=== PATIENT | female | born 1970 | race Caucasian/White ===

== ENCOUNTER → 2018-10-26 | Outpatient (CLI) | payer OTHER ==
--- NOTE | 2018-11-05 08:42 | Diagnostic Imaging Report ---
#[id number] - MGSCRBIL #BILATERAL DIGITAL SCREENING MAMMOGRAM WITH CAD: 10/26/2018 CLINICAL: Routine screening. Comparison is made to exams dated: 06/08/2017 mammogram and 05/20/2013 mammogram - [facility]. Current study contains 4 films. There are scattered fibroglandular elements in both breasts. Current study was also evaluated with a Computer Aided Detection (CAD) system. Benign appearing calcifications are noted bilaterally. There is a benign appearing mass in the right breast which is stable. No significant masses, calcifications, or other findings are seen in either breast. IMPRESSION: BENIGN There is no mammographic evidence of malignancy. A 1 year screening mammogram is recommended. The patient will be notified by letter of the results. JONAH WILSON M.D. ct/penrad:11/02/2018 14:53:56 [employer] Machine Operator: Chelsie RUIZ(Chauncey)(Tr), [facility] letter sent: Normal Exam Mammogram BI-RADS: 2 Benign
== END ==
LOC: MAMMO 10:52
PROVIDERS: ATTEND Family Medicine
DX: Z12.31 Encounter for screening mammogram for malignant neoplasm of breast (principal)
CPT/HCPCS: 77067

== ENCOUNTER 2019-07-04 08:34 | Inpatient (IN) | payer OTHER ==
[~2019-07-04] VITALS: Ht 154.9 cm; Wt 65.5 kg
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
[2019-07-04] MEDS ORDERED: SODIUM CHLORIDE 0.9% 1000ML 1,000 ML IV STA (08:58)
[2019-07-04] MEDS ORDERED: GABAPENTIN300 MG PO (09:22)
[2019-07-04] MEDS ORDERED: NP THYROID90 MG (09:22)
[2019-07-04] MEDS ORDERED: ACETAMINOPHEN-1 EAC4 PO (09:22)
[2019-07-04] MEDS ORDERED: ULTRAM 50MG50 MG (09:22)
[2019-07-04] MEDS ORDERED: ARMOUR THYROID60 MG (09:22)
[2019-07-04 09:30] LABS: AMPHETAMINES SCREEN,URINE NEGATIVE (NEGATIVE); BENZODIAZEPINES SCREEN,URINE NEGATIVE (NEGATIVE); PHENCYCLIDINE SCREEN,URINE NEGATIVE (NEGATIVE)
[2019-07-04 09:31] LABS: CLARITY,URINE CLEAR (CLEAR); COLOR,URINE YELLOW (YELLOW); KETONES,URINE 1+ (NEGATIVE); LEUKOCYTE ESTERASE ,URINE NEGATIVE (NEGATIVE); NITRITE,URINE NEGATIVE (NEGATIVE); PROTEIN,URINE DIPSTICK TRACE (NEGATIVE)
[2019-07-04 09:32] LABS: BILIRUBIN,URINE SMALL (NEGATIVE); URINE UROBILINOGEN 0.2 mg/dL (0.2 - 1)
[2019-07-04 09:34] LABS: BACTERIA,URINE FEW /HPF; EPITHELIAL CELLS,URINE MODERATE /LPF; WBC,URINE (MAN) 0-5 /HPF (0-5)
[2019-07-04 10:01] LABS: BASOPHILS % 0.2 % (0.0-1.0); EOSINOPHILS % 0.2 % (0.0-6.0); HEMATOCRIT 46.3 % (34.2-44.1); HEMOGLOBIN 15.3 g/dL (12.0-16.0); LYMPHOCYTES # (AUTO) 1.2 (1.0-3.2); LYMPHOCYTES % 10.2 % (18.0-39.1); MEAN CORPUSCULAR HEMOGLOBIN 31.1 pg (28-32); MEAN CORPUSCULAR VOLUME 94.1 fL (81-99); MONOCYTES # (AUTO) 1.1 (0.2-0.8); MONOCYTES % 9.3 % (4.4-11.3); NEUTROPHILS # (AUTO) 9.7 (2.1-6.9); NEUTROPHILS % 79.8 % (38.7-80.0); PLATELET COUNT 241 x10e3/uL (140-360); RED BLOOD COUNT 4.92 x10e6/uL (3.6-5.1); RED CELL DISTRIBUTION WIDTH 12.5 % (11.7-14.4)
[2019-07-04 10:20] LABS: ALANINE AMINOTRANSFERASE 18 IU/L (0-55); ALBUMIN 3.8 g/dL (3.5-5.0); ALKALINE PHOSPHATASE 78 IU/L (40-150); ANION GAP 12.8 mmol/L (8-16); BLOOD UREA NITROGEN 7 mg/dL (7-26); BUN/CREATININE RATIO 9 (6-25); CALCIUM 9.6 mg/dL (8.4-10.2); CARBON DIOXIDE 28 mmol/L (22-29); CHLORIDE 97 mmol/L (98-107); CREATININE, SERUM 0.82 mg/dL (0.57-1.11); EST GLOMERULAR FILTRATION RATE > 60 ML/MIN (60-); GLUCOSE 102 mg/dL (74-118); LIPASE 10 U/L (8-78); POTASSIUM 3.8 mmol/L (3.5-5.1); SODIUM 134 mmol/L (136-145)
[2019-07-04] MEDS ORDERED: KETOROLAC TROMETHAMINE 30 MG/ML VIAL IV STA (10:30)
--- NOTE | 2019-07-04 10:32 | Diagnostic Imaging Report ---
EXAM: CT Abdomen and Pelvis WITHOUT intravenous contrast INDICATION: Abdominal pain COMPARISON: None. TECHNIQUE: Abdomen and pelvis were scanned utilizing a multidetector helical scanner from the lung base to the pubic symphysis without administration of IV contrast. Coronal and sagittal reformations were obtained. IV CONTRAST: None ORAL CONTRAST: Water COMPLICATIONS: None RADIATION DOSE: Total DLP: 609 mGy*cm Dose modulation, iterative reconstruction, and/or weight based adjustment of the mA/kV was utilized to reduce the radiation dose to as low as reasonably achievable. FINDINGS: LOWER THORAX: Normal. HEPATOBILIARY: No focal hepatic lesions. No biliary ductal dilatation. The gallbladder appears unremarkable. SPLEEN: No splenomegaly. PANCREAS: No focal masses or ductal dilatation. ADRENALS: No adrenal nodules. KIDNEYS/URETERS: No hydronephrosis, stones, or solid mass lesions. PELVIC ORGANS/BLADDER: Unremarkable. PERITONEUM / RETROPERITONEUM: No free air or fluid. LYMPH NODES: No lymphadenopathy. VESSELS: Moderate atherosclerotic calcifications of the nonaneurysmal abdominal aorta and major branches. GI TRACT: Sigmoid diverticulosis with a segment of focal proximal sigmoid colon wall thickening associated with several inflamed diverticuli with pericolonic fat stranding and a small subcentimeter focus of extraluminal air. No focal fluid collection. BONES AND SOFT TISSUES: No acute osseous injury. IMPRESSION: Acute perforated sigmoid diverticulitis without focal diverticular abscess. Signed by: Sj Cordova MD on 07/04/2019 10:29 AM
[2019-07-04] MEDS ORDERED: MORPHINE SULFATE INJ 4 MG/ML INJ 1ML IV PRN ×2 (10:45→14:30)
[2019-07-04] MEDS: ONDANSETRON HCL INJ 2MG/ML 2ML 2 MG/ML VIAL IV PRN ×3 (10:50→19:05)
[2019-07-04] MEDS ORDERED: CIPROFLOXACIN 400 MG/D5W 200ML 200 ML IV SCH (11:00)
[2019-07-04 11:44] VITALS: BP 106/56
[2019-07-04] MEDS ORDERED: ARMOUR THYROID90 MG PO (11:44)
[2019-07-04 11:47] VITALS: BP 106/56
[2019-07-04] MEDS ORDERED: PIPER-TAZ 3.375 GM 50 ML IV SCH (12:00)
[2019-07-04] MEDS ORDERED: METRONIDAZOLE 500MG/NS 100ML 100 ML IV SCH (12:00)
--- NOTE | 2019-07-04 12:00 | NUR ---
Received patient from ER to room 297, patient is in stable condition. Admission history and initial physical assessment completed. Patient oriented to room and policies. Call light within reach. Bed in the lowest position.
[2019-07-04 12:08] VITALS: BP 106/56
[2019-07-04] MEDS: PIPER-TAZ 3.375 GM 50 ML IV SCH ×2 (13:06→20:00)
[2019-07-04] MEDS: MORPHINE SULFATE INJ 4 MG/ML INJ 1ML IV PRN ×2 (14:55→19:05)
[2019-07-04 15:01] VITALS: BP 92/55
[2019-07-04] MEDS: KETOROLAC TROMETHAMINE 30 MG/ML VIAL IV PRN ×2 (17:30→22:15)
[2019-07-04] MEDS: SODIUM CHLORIDE 0.9% 1000ML 1,000 ML IV SCH (19:05)
--- NOTE | 2019-07-04 19:15 | NUR ---
patient received awake, alert, lying quietly in bed. vss. patient medicated for pain by day shift nurse prior to rounds. ivf continue to infuse without difficulty. pm assessment complete. patient instructed to call for assistance when needed.
--- NOTE | 2019-07-04 19:19 | NUR ---
Bedside shift report given to oncoming nurse. Patient is resting in bed. No acute distress noted. Call light within reach. Bed in the lowest position.
[2019-07-04 20:00] VITALS: BP 101/57
[2019-07-04] MEDS: METRONIDAZOLE 500MG/NS 100ML 100 ML IV SCH (22:00)
[2019-07-04 22:29] VITALS: BP 101/57
--- NOTE | 2019-07-04 22:34 | History and Physical ---
CHIEF COMPLAINT: The patient is a 49-year-old female, who came with abdominal pain. HISTORY OF PRESENTING ILLNESS: Ms. Lissette Mcmanus with a history of diverticulitis in the past, seen Dr. Lara, was given a high-fiber diet and the patient started keto diet and started with abdominal pain, which was acute in onset. The patient came in and was found to have diverticulitis with perforation. The patient is on the floor. Vital signs stable. The patient is asking for pain medications at this time. PAST MEDICAL HISTORY: History of hypothyroidism and history of diverticulitis as mentioned above. The patient also has a history of low back pain for which she takes Tylenol with Codeine and gabapentin 300 mg daily p.r.n. The patient also takes [place] Thyroid 90 mg daily. PAST SURGICAL HISTORY: History of hysterectomy. SOCIAL HISTORY: No EtOH. No abuse. FAMILY HISTORY: Mother with TIAs and family history of stroke in the family too. REVIEW OF SYSTEMS: Negative for chest pain. No shortness of breath. No nausea. No vomiting. No diarrhea. Positive for some constipation. No rectal bleeding. No hematochezia. No hematemesis. Positive for abdominal pain. No diplopia. No blurry vision. No paresthesias. No hyperesthesias and no focal deficits noted. PHYSICAL EXAMINATION: GENERAL: The patient is alert and oriented x3, apparently in pain. Pain is 8/10 in intensity. VITAL SIGNS: Temperature is 100.5, pulse of 98, respirations 20, pulse oximetry of 98%. HEENT: Normocephalic, atraumatic. Pupils are reactive to light and accommodation. CVS: S1 and S2 normal. Regular rate and rhythm. LUNGS: Clear to auscultation bilaterally. ABDOMEN: Tender in the left lower quadrant. EXTREMITIES: No clubbing, no cyanosis, no edema. No rebound present at this time. IMAGING STUDIES: Imaging done in the ED shows acute perforated sigmoid diverticulitis without focal diverticular abscess. Moderate atherosclerotic calcification of aneurysm abdominal aorta. Kidneys show no hydroureters. Adrenals no nodules. Pancreas are normal and no splenomegaly. ASSESSMENT: Ms. Lissette Mcmanus with: 1. Diverticulitis with diverticular perforation. 2. Systemic inflammatory response syndrome. 3. History of low back pain. 4. History of hypothyroidism. PLAN: Keep the patient n.p.o. The patient is getting normal saline at 125 mL an hour. She is currently on Zosyn and also Flagyl, which will provide adequate coverage. ID consult has been done. The patient also has Dr. Luis M Pearl on consult. We will also consult her GI, Dr. Garner, who covers for Dr. Lara. Further recommendation per clinical course. We will continue to monitor the patient. Further recommendation by Dr. Luis M Pearl and monitor her very carefully. Telemetry to be applied and also SCDs for DVT prophylaxis. MD KYLAH Michelle/MODL /[id number]
--- NOTE | 2019-07-04 23:09 | Consultation ---
DATE OF CONSULTATION: REASON FOR CONSULTATION: Diverticulitis with an abscess. HISTORY OF PRESENT ILLNESS: This is a patient who is a 49-year-old female, who has a history of diverticular disease, comes in with one day of abdominal pain, pre-umbilical, got progressively worse. She still has less constipation, took her laxative without improvement, came to the emergency room. The patient is having abdominal pain. She is being admitted on antibiotic. PAST MEDICAL HISTORY: Diverticular disease. PAST SURGICAL HISTORY: Denies. ALLERGIES: NKA. SOCIAL HISTORY: There is no smoking, drug abuse, or alcohol abuse. FAMILY HISTORY: Otherwise unremarkable. She used to smoke long time ago. Her CAT scan showed acute diverticulitis with rupture, but there was no abscess. White count 12.1 sodium 134, potassium 3.8. MEDICATION LIST: She is currently on Zosyn and Flagyl. REVIEW OF SYSTEMS: HEENT: Negative. PULMONARY: Negative. CARDIAC: Negative. : Negative. GI: As above. PHYSICAL EXAMINATION: GENERAL: She is currently alert, oriented, does not seem to be in acute distress. VITAL SIGNS: Stable, currently afebrile. HEENT: She is not icteric. NECK: Supple. CHEST: Clear. HEART: S1 and S2. ABDOMEN: Soft. Diffuse discomfort. IMPRESSION: Diverticulitis, diverticular disease. Agree with Zosyn. Can continue Flagyl. Recheck CBC. Recheck Chem panel. Surgery is consulted. Would need colonoscopy eventually. May need surgery eventually. We will follow. MD HELEN Aden/KRISTINE /[id number]
[2019-07-05] VITALS (8 sets, daily range): BP systolic 87–134; BP diastolic 51–75
[2019-07-05] MEDS: ONDANSETRON HCL INJ 2MG/ML 2ML 2 MG/ML VIAL IV PRN ×4 (00:25→15:38)
[2019-07-05] MEDS: MORPHINE SULFATE INJ 4 MG/ML INJ 1ML IV PRN ×5 (00:25→19:48)
[2019-07-05] MEDS: PIPER-TAZ 3.375 GM 50 ML IV SCH ×4 (01:06→20:30)
--- NOTE | 2019-07-05 02:54 | Consultation ---
DATE OF CONSULTATION: 07/04/2019 HISTORY OF PRESENT ILLNESS: This is a 49-year-old, who presented to the hospital because of left lower abdominal pain and the patient was found to have acute perforated diverticulitis, which seems to be walled off. She apparently had same similar episodes in March, but she was not hospitalized at that time. She had a colonoscopy recently in January of last year by my associate, Dr. Lara, which only showed diverticulosis. PAST MEDICAL HISTORY: Significant for history of now recurrent diverticulitis. ALLERGIES: NONE. SOCIAL HISTORY: Denies any alcohol use. FAMILY HISTORY: Noncontributory. REVIEW OF SYSTEMS: Denies any chest pain or shortness of breath. Denies any dysphagia or odynophagia. Denies any dysuria, hematuria, or any kind of syncopal episode. PHYSICAL EXAMINATION: GENERAL: Awake, alert, appears to be stable, in no acute distress at this point. VITAL SIGNS: She is afebrile currently with stable vital signs. HEAD, EYES, EARS, NOSE, AND THROAT: Normocephalic, atraumatic. Sclerae are anicteric. NECK: Supple. HEART: Sounds regular. LUNGS: Clear. ABDOMEN: Soft. There is mild tenderness in the left lower quadrant area. There is no rebound or mass. EXTREMITIES: There is no clubbing. LABORATORY VALUES: WBC of 12.1, and chemistry was okay except for sodium 134. CT scan shows perforated diverticulitis without any abscess. IMPRESSION: Recurrent diverticulitis at this time with perforation. The patient did have a colonoscopy in January 2019. RECOMMENDATIONS: Keep n.p.o., IV fluid, and hydration. The patient will benefit from colon resection after these episodes resolve. Tristen Garner MD DHD/MODL /[id number] cc: MD Dr. Dae Michelle
[2019-07-05] MEDS: KETOROLAC TROMETHAMINE 30 MG/ML VIAL IV PRN ×2 (03:30→09:25)
[2019-07-05] MEDS: SODIUM CHLORIDE 0.9% 1000ML 1,000 ML IV SCH ×3 (05:05→17:01)
[2019-07-05] MEDS: METRONIDAZOLE 500MG/NS 100ML 100 ML IV SCH ×3 (05:06→22:00)
[2019-07-05 06:15] LABS: BASOPHILS % 0.3 % (0.0-1.0); EOSINOPHILS # (AUTO) 0.1 (0.0-0.4); EOSINOPHILS % 1.3 % (0.0-6.0); HEMATOCRIT 40.9 % (34.2-44.1); HEMOGLOBIN 13.2 g/dL (12.0-16.0); LYMPHOCYTES # (AUTO) 0.9 (1.0-3.2); LYMPHOCYTES % 11.7 % (18.0-39.1); MEAN CORPUSCULAR HEMOGLOBIN 31.4 pg (28-32); MEAN CORPUSCULAR HGB CONC 32.3 g/dL (31-35); MEAN CORPUSCULAR VOLUME 97.1 fL (81-99); MONOCYTES # (AUTO) 0.7 (0.2-0.8); NEUTROPHILS # (AUTO) 5.9 (2.1-6.9); NEUTROPHILS % 77.1 % (38.7-80.0); PLATELET COUNT 184 x10e3/uL (140-360); RED BLOOD COUNT 4.21 x10e6/uL (3.6-5.1); RED CELL DISTRIBUTION WIDTH 12.5 % (11.7-14.4)
[2019-07-05 06:38] LABS: ALANINE AMINOTRANSFERASE 14 IU/L (0-55); ALBUMIN 2.8 g/dL (3.5-5.0); ALBUMIN/GLOBULIN RATIO 0.8 (0.8-2.0); ALKALINE PHOSPHATASE 55 IU/L (40-150); BLOOD UREA NITROGEN 8 mg/dL (7-26); BUN/CREATININE RATIO 11 (6-25); CALCIUM 8.5 mg/dL (8.4-10.2); CARBON DIOXIDE 23 mmol/L (22-29); CHLORIDE 107 mmol/L (98-107); CREATININE, SERUM 0.71 mg/dL (0.57-1.11); EST GLOMERULAR FILTRATION RATE > 60 ML/MIN (60-); GLUCOSE 64 mg/dL (74-118); SODIUM 139 mmol/L (136-145)
--- NOTE | 2019-07-05 06:48 | NUR ---
Received bedside shift report from off going nurse. Patient is resting in bed, no acute distress noted. Call light within reach. Bed in the lowest position.
--- NOTE | 2019-07-05 09:46 | Progress Note ---
DATE: SUBJECTIVE: A 49-year-old female came in with diverticulitis with microperforation, currently stable. No chest pain or shortness of breath. Abdominal pain is present, but controlled with medications. No bowel movements yet and the patient is starting to get hungry. OBJECTIVE: VITAL SIGNS: Temperature 96.0, pulse of 75, respirations of 16, blood pressure is 87/51, pulse oximetry of 97%. HEENT: Normocephalic, atraumatic. Pupils are reactive to light and accommodation. CVS: S1 and S2 normal. Regular rate and rhythm. ABDOMEN: Tenderness in the left lower quadrant. EXTREMITIES: No clubbing, no cyanosis, no edema. LABORATORY VALUES: White count is down to 7.70, hemoglobin is 13.2, hematocrit of 40.9. Chemistry shows sodium 139, potassium 4.0, BUN of 8, creatinine 0.71. ALT and AST normal. Albumin and globulin normal. Toxicology, opiates were positive yesterday. She takes Tylenol No.4. Urine within normal limits. ASSESSMENT: Ms. Lissette Mcmanus with recurrent diverticulitis with perforation. PLAN: 1. Consult with elective surgery after 4 to 6 weeks of healing is anticipated. 2. Continue IV fluids. Continue with IV antibiotics, n.p.o. The patient continues to do better. Further recommendation per clinical course. DISPOSITION: Possible discharge in 1 to 2 days depending on the progression of the disease. MD KYLAH Michelle/MODL /[id number]
--- NOTE | 2019-07-05 19:20 | NUR ---
Patient visited in room during nursing rounds. Patient alert and oriented x3. No distress noted. Pt having intermittent abd pain and will be medicated accordingly. On IVF and scheduled IV antibiotics. Ambulatory in room prn. Call shankar within reach. Will monitor closely.
--- NOTE | 2019-07-05 19:27 | NUR ---
Bedside shift report given to oncoming nurse. Patient is in stable condition resting in bed, no acute distress noted. Call light within reach. Bed in the lowest position.
--- NOTE | 2019-07-05 20:43 | NUR ---
Dr. Garner came and saw pt in room. aware of patient condition. No new orders given at this time.
[2019-07-06] VITALS (8 sets, daily range): BP systolic 118–154; BP diastolic 58–94
[2019-07-06] MEDS: SODIUM CHLORIDE 0.9% 1000ML 1,000 ML IV SCH ×3 (00:52→20:17)
[2019-07-06] MEDS: PIPER-TAZ 3.375 GM 50 ML IV SCH ×4 (02:30→20:17)
[2019-07-06] MEDS: MORPHINE SULFATE INJ 4 MG/ML INJ 1ML IV PRN ×4 (02:40→20:48)
[2019-07-06] MEDS: METRONIDAZOLE 500MG/NS 100ML 100 ML IV SCH ×3 (06:00→22:57)
--- NOTE | 2019-07-06 06:44 | NUR ---
Bedside shift report received from off going nurse. Patient is in stable condition. She is resting in bed, no acute distress noted. Pain at a tolerable level at this time. Call light within reach. Bed in the lowest position.
--- NOTE | 2019-07-06 07:01 | Progress Note ---
DATE: SUBJECTIVE: The patient comes in with acute diverticulitis with perforation. Currently, the patient is doing well, on clear liquid diet. No chest pain. No shortness of breath. She had a bowel movement yesterday with apple juice and is feeling better, hungry. OBJECTIVE: VITAL SIGNS: Temperature is 97.3, pulse 70, respirations of 18, blood pressure is 118/58, pulse oximetry of 99%. HEENT: Normocephalic and atraumatic. Pupils are reactive to light and accommodation. CVS: S1 and S2 normal. Regular rhythm. ABDOMEN: Decreased tenderness in the left lower quadrant. EXTREMITIES: No clubbing, no cyanosis, no edema. ASSESSMENT: Ms. Lissette Mcmanus with diverticulitis with perforation. The patient is healing. The patient is anticipated to have an elective surgery in 4 to 6 weeks. The patient can advance her diet to a full liquid diet. PLAN: Continue antibiotic. Discharge tomorrow possible with p.o. antibiotics. Further recommendation per clinical course. We will continue to monitor the patient. MD KYLAH Michelle/MODL /[id number]
[2019-07-06 07:05] LABS: BASOPHILS % 0.2 % (0.0-1.0); EOSINOPHILS # (AUTO) 0.1 (0.0-0.4); EOSINOPHILS % 2.1 % (0.0-6.0); HEMATOCRIT 42.9 % (34.2-44.1); HEMOGLOBIN 13.8 g/dL (12.0-16.0); LYMPHOCYTES % 18.5 % (18.0-39.1); MEAN CORPUSCULAR HEMOGLOBIN 31.3 pg (28-32); MEAN CORPUSCULAR HGB CONC 32.2 g/dL (31-35); MEAN CORPUSCULAR VOLUME 97.3 fL (81-99); MONOCYTES # (AUTO) 0.4 (0.2-0.8); NEUTROPHILS # (AUTO) 3.8 (2.1-6.9); PLATELET COUNT 218 x10e3/uL (140-360); RED BLOOD COUNT 4.41 x10e6/uL (3.6-5.1); RED CELL DISTRIBUTION WIDTH 12.2 % (11.7-14.4)
[2019-07-06 07:22] LABS: ANION GAP 12.3 mmol/L (8-16); BLOOD UREA NITROGEN 5 mg/dL (7-26); BUN/CREATININE RATIO 8 (6-25); CALCIUM 8.7 mg/dL (8.4-10.2); CARBON DIOXIDE 22 mmol/L (22-29); CHLORIDE 108 mmol/L (98-107); CREATININE, SERUM 0.64 mg/dL (0.57-1.11); EST GLOMERULAR FILTRATION RATE > 60 ML/MIN (60-); GLUCOSE 62 mg/dL (74-118); POTASSIUM 4.3 mmol/L (3.5-5.1); SODIUM 138 mmol/L (136-145)
[2019-07-06] MEDS: ONDANSETRON HCL INJ 2MG/ML 2ML 2 MG/ML VIAL IV PRN ×3 (09:10→20:48)
--- NOTE | 2019-07-06 19:41 | NUR ---
Report given to oncoming nurse. Patient is resting in bed. No acute distress noted. Call light within reach. Bed in the lowest position.
--- NOTE | 2019-07-06 23:54 | Progress Note ---
DATE: SUBJECTIVE: Ms. Mcmanus is feeling better. There is no new complaint. PHYSICAL EXAMINATION: GENERAL: She is currently alert, oriented, does not seem in acute distress. VITAL SIGNS: Stable. Currently afebrile. IMPRESSION: Diverticulitis, perforation, doing well. She can be discharged home tomorrow with Cipro and Flagyl for 2 weeks. Follow up as an outpatient. May need to extend her treatment longer. MD HELEN Aden/MODL /[id number]
[2019-07-07] VITALS: BP 132/71
[2019-07-07] MEDS: PIPER-TAZ 3.375 GM 50 ML IV SCH ×2 (02:25→07:00)
[2019-07-07] MEDS: SODIUM CHLORIDE 0.9% 1000ML 1,000 ML IV SCH ×2 (03:49→07:00)
[2019-07-07 04:00] VITALS: BP 149/73
[2019-07-07] MEDS: ONDANSETRON HCL INJ 2MG/ML 2ML 2 MG/ML VIAL IV PRN (04:40)
[2019-07-07] MEDS: MORPHINE SULFATE INJ 4 MG/ML INJ 1ML IV PRN (04:40)
[2019-07-07] MEDS: METRONIDAZOLE 500MG/NS 100ML 100 ML IV SCH (05:21)
[2019-07-07 06:27] LABS: BASOPHILS % 0.2 % (0.0-1.0); EOSINOPHILS # (AUTO) 0.1 (0.0-0.4); EOSINOPHILS % 2.8 % (0.0-6.0); HEMATOCRIT 40.6 % (34.2-44.1); HEMOGLOBIN 13.2 g/dL (12.0-16.0); LYMPHOCYTES # (AUTO) 0.8 (1.0-3.2); LYMPHOCYTES % 19.4 % (18.0-39.1); MEAN CORPUSCULAR HEMOGLOBIN 30.8 pg (28-32); MEAN CORPUSCULAR HGB CONC 32.5 g/dL (31-35); MEAN CORPUSCULAR VOLUME 94.6 fL (81-99); MONOCYTES # (AUTO) 0.4 (0.2-0.8); NEUTROPHILS # (AUTO) 2.9 (2.1-6.9); NEUTROPHILS % 67.4 % (38.7-80.0); PLATELET COUNT 241 x10e3/uL (140-360); RED BLOOD COUNT 4.29 x10e6/uL (3.6-5.1)
--- NOTE | 2019-07-07 06:42 | NUR ---
Received bedside shift report from off going nurse. Patient is resting in bed. No acute distress noted. Call light within reach. Bed in the lowest position.
[2019-07-07] MEDS ORDERED: GABAPENTIN 300 MG CAP PO PRN (07:45)
[2019-07-07 08:18] VITALS: BP 155/72
[2019-07-07] MEDS ORDERED: THYROID 60 MG TAB PO SCH (09:00)
--- NOTE | 2019-07-07 09:00 | Progress Note ---
DATE: SUBJECTIVE: The patient is a 49-year-old female, who came in with acute diverticulitis with perforation. Currently, able to tolerate soft mechanical diet. No chest pain. No shortness of breath. No nausea, vomiting. Had a bowel movement. No complaints. OBJECTIVE: VITAL SIGNS: Temperature is 96.9, pulse of 63, respirations of 20, blood pressure is 149/73, pulse oximetry of 100%. HEENT: Normocephalic and atraumatic. Pupils are reactive to light and accommodation. CVS: S1 and S2 normal, regular rhythm. ABDOMEN: Soft, nontender. EXTREMITIES: No clubbing, no cyanosis, no edema. LABORATORY VALUES: White count is 4.32, hemoglobin of 13.2, hematocrit of 40.6. Chemistry; sodium 138, potassium 4.3, BUN of 5, and creatinine of 0.64. ASSESSMENT: Ms. Lissette Mcmanus with diverticulitis perforation, doing well, can be discharged home with Pedroro and Jayy. Follow up as an outpatient and will need elective surgery in 4 to [address] Pearl. This has been conveyed to the patient. MD KYLAH Michelle/MODL /[id number]
[2019-07-07 09:48] VITALS: BP 155/72
--- NOTE | 2019-07-07 10:22 | NUR ---
Dr. Pearl cleared patient for discharge. Notified jesus Robbins to discharge patient.
[2019-07-07] MEDS ORDERED: FLAGYL250 MG PO (10:30)
[2019-07-07] MEDS ORDERED: CIPRO500 MG PO (10:30)
--- NOTE | 2019-07-07 10:37 | NUR ---
Notified Dr. Ghosh that patient wants to drive home, per MD is ok.
--- NOTE | 2019-07-07 11:06 | NUR ---
Received discharge order from Dr. Ghosh, patient is in stable condition. IV line to left forearm discontinued with tip intact, pressure applied to site, no bleeding noted. Discharge teaching provided to patient, she verbalized understanding. Discharge folder with paperwork and prescriptions on hand. All personal items on hand. Patient accompanied to private auto by staff, refused wheelchair.
--- NOTE | 2019-08-31 21:53 | Discharge Summary ---
HOSPITAL COURSE: This patient came into the hospital with acute perforated walled-off diverticulitis, second episode in 6 months. The patient was started n.p.o., was kept n.p.o., hydration, antibiotics. A colonoscopy in 6-8 weeks was anticipated. The patient will also need colon resection in the future. The patient also had a consult with Dr. Garner and Dr. Pearl. Diverticulitis did get better. Once the patient's pain was better, diet was improvised and the patient was feeling better and discharged home on Levaquin and Flagyl. For further information, look in the chart. For medicines on discharge, look in medical reconciliation sheet. FINAL DIAGNOSES: 1. Diverticulitis, acute perforation walled-off diverticular disease. 2. Hypothyroidism. 3. History of low back pain. For further information, look in the chart. MD KYLHA Michelle/MODL /[id number]
== END 2019-07-07 11:06 | disposition home or self-care (01) | DRG 872 ==
LOC: ER 08:34 → ERHOLD 10:36 → MED/SURG3 11:32 → IMCU 14:55 → MED/SURG3 15:03
PROVIDERS: ADMIT Family Medicine; ATTEND Family Medicine
DX: A41.9 Sepsis, unspecified organism (principal); K57.00 Diverticulitis of small intestine with perforation and abscess without bleeding; E03.9 Hypothyroidism, unspecified; Z82.3 Family history of stroke
CPT/HCPCS: 36415; 74176; 80048; 80053; 80307; 81001; 83690; 85025; 93005; 99284; J1885; J2270; J2405; J2543; J7030

== ENCOUNTER → 2020-07-01 | Outpatient (CLI) | payer OTHER ==
[~2020-07-01] MED LIST: ACETAMINOPHEN-1 EAC4 PO; ARMOUR THYROID60 MG; ARMOUR THYROID90 MG PO; CIPRO500 MG PO; FLAGYL250 MG PO; GABAPENTIN300 MG PO; NP THYROID90 MG; ULTRAM 50MG50 MG
== END ==
LOC: MAMMO 09:14
PROVIDERS: ATTEND Family Medicine
DX: Z12.31 Encounter for screening mammogram for malignant neoplasm of breast (principal)
CPT/HCPCS: 77067

== ENCOUNTER → 2020-11-12 | Outpatient (CLI) | payer BC | LOC: US 08:23 | PROVIDERS: ATTEND Family Medicine | DX: N63.14 Unspecified lump in the right breast, lower inner quadrant (principal) ==

== ENCOUNTER → 2021-08-04 | Outpatient (CLI) | payer BC | LOC: MAMMO 12:46 | PROVIDERS: ATTEND Family Medicine | DX: Z12.31 Encounter for screening mammogram for malignant neoplasm of breast (principal) | CPT/HCPCS: 77067 ==

== ENCOUNTER → 2022-10-05 | Outpatient (CLI) | payer BC | LOC: MAMMO 08:34 | PROVIDERS: ATTEND Family Medicine | DX: Z12.31 Encounter for screening mammogram for malignant neoplasm of breast (principal); Z13.820 Encounter for screening for osteoporosis | CPT/HCPCS: 77067; 77080 ==